=== PATIENT | female | born 1955 | race Caucasian/White ===

== ENCOUNTER 2022-06-17 08:17 | Observation (INO) ==
--- NOTE | 2022-04-29 10:30 | PAT Medication Instructions ---
Medication Instructions Date of Service April 29, 2022 Home Medications Medication Instructions Recorded famotidine 40 mg tablet 40 mg PO QPM #90 tabs 07/03/21 losartan 50 mg tablet 50 mg PO BID #200 tabs 10/23/21 nystatin 100,000 unit/gram topical 1 applic topical BID PRN rash #30 11/17/21 powder grams meloxicam 7.5 mg tablet 7.5 mg PO BID #60 tabs 03/31/22 sodium sul 1.479 gram-potas ch See Rx Instructions PO .COMPLEX 04/19/22 0.188 gram-magnes sul 0.225 gram #24 tabs tablet (Sutab) multivitamin 1 tab PO QAM ascorbic acid (vitamin C) 100 mg tablet 500 mg PO QAM famotidine 40 mg tablet 40 mg PO QPM losartan 50 mg tablet 50 mg PO BID nystatin 100,000 unit/gram topical powder 1 applic topical BID PRN rash meloxicam 7.5 mg tablet 7.5 mg PO BID sodium sul 1.479 gram-potas ch 0.188 gram-magnes sul 0.225 gram tablet (Sutab) See Rx Instructions PO .COMPLEX aspirin 81 mg tablet,delayed release 81 mg PO QAM atorvastatin 20 mg tablet (Lipitor) 20 mg PO QPM calcium carbonate 600 mg-vitamin D3 5 mcg (200 unit) tablet 1 tab PO QAM furosemide 20 mg tablet 20 mg PO QAM potassium gluconate 600 mg (99 mg) tablet 600 mg PO QAM Continue as directed sodium sul 1.479 gram-potas ch 0.188 gram-magnes sul 0.225 gram tablet (Sutab) See Rx Instructions PO .COMPLEX ASK your surgeon for instructions meloxicam 7.5 mg tablet 7.5 mg PO BID STOP taking 24 hours before surgery nystatin 100,000 unit/gram topical powder 1 applic topical BID PRN rash DO NOT take the morning of surgery multivitamin 1 tab PO QAM ascorbic acid (vitamin C) 100 mg tablet 500 mg PO QAM losartan 50 mg tablet 50 mg PO BID calcium carbonate 600 mg-vitamin D3 5 mcg (200 unit) tablet 1 tab PO QAM furosemide 20 mg tablet 20 mg PO QAM potassium gluconate 600 mg (99 mg) tablet 600 mg PO QAM Take morning of surgery With a small sip of water, OTHERWISE NOTHING TO EAT OR DRINK AFTER MIDNIGHT: aspirin 81 mg tablet,delayed release 81 mg PO QAM (continue as normal unless told otherwise by surgeon) Take evening before surgery famotidine 40 mg tablet 40 mg PO QPM losartan 50 mg tablet 50 mg PO BID atorvastatin 20 mg tablet (Lipitor) 20 mg PO QPM Other Notes If you have any questions please call us at [phone] or [phone] or [phone] or [phone]
--- NOTE | 2022-05-08 11:49 | Anesthesiology Consultation ---
Date of Service May 08, 2022 Assessment & Plan (1) Encounter for pre-operative examination: - COVID screening: Per assessment on 05/08: No known COVID-19 positive contacts or current COVID-19 related symptoms. Travel screen negative. Patient vaccinated. At surgeon discretion if preop Covid testing being done. - S/P colonoscopy (04/23/22): MAC at [facility]. No issues noted per post-op anesthesia progress note. - Outpatient joint assessment: Pt currently scheduled for inpatient pathway. If surgeon requests review for outpatient joint pathway, patient is not recommended candidate for outpatient joint program from anesthesia standpoint. Chart Review Chart Review: Acceptable Risk for Surgery and Patient seen in Pre Admission Testing Teaching & Discussion Pre-Anesthesia Teaching/Discussion Notes: Instructed NPO after midnight before surgery,except medications with 15 cc of water. Medication instructions provided according to the PAT guidelines. History Surgery Operation Date: 05/29/22 12:30 Proposed Procedures p Left Total Knee Arthroplasty - Don Chan MD Height/Weight Height: 5 ft 8 in Weight: 135.3 kg Allergies Allergy/AdvReac Type Severity Reaction Status Date / Time JOSELUIS Inhibitors AdvReac Intermediate cough Verified 04/23/22 08:17 lisinopril AdvReac Intermediate Cough Verified 04/23/22 08:17 Medications Home Medications Medication Instructions Recorded Confirmed Last Taken multivitamin 1 tab PO QAM 10/26/18 04/23/22 04/22/22 ascorbic acid (vitamin C) 100 mg 500 mg PO QAM 10/28/18 04/23/22 04/22/22 tablet famotidine 40 mg tablet 40 mg PO QPM #90 tabs 07/03/21 04/23/22 04/22/22 losartan 50 mg tablet 50 mg PO BID #200 tabs 10/23/21 04/23/22 04/23/22 nystatin 100,000 unit/gram topical 1 applic topical BID PRN rash #30 11/17/21 04/20/22 Unknown powder grams meloxicam 7.5 mg tablet 7.5 mg PO BID #60 tabs 03/31/22 04/23/22 04/22/22 aspirin 81 mg tablet,delayed 81 mg PO QAM 04/20/22 04/23/22 04/21/22 release atorvastatin 20 mg tablet (Lipitor) 20 mg PO QPM 04/20/22 04/23/2223 calcium carbonate 600 mg-vitamin 1 tab PO QAM 04/20/22 04/23/22 04/22/22 D3 5 mcg (200 unit) tablet furosemide 20 mg tablet 20 mg PO QAM 04/20/22 04/23/22 04/22/22 potassium gluconate 600 mg (99 mg) 600 mg PO QAM 04/20/22 04/23/22 04/22/22 tablet Past Medical History Medical History Acid reflux disease Allergic rhinitis Bilateral chronic knee pain DVT (deep venous thrombosis) NATACHA (1994) during admission for mediastinal surgery (cyst)- per patient this was prior to the surgery but during the admission felt r/t immobility, no issues since Dyslipidemia Generalized osteoarthritis of multiple sites Hypertension Morbid obesity Osteoarthritis of knee Exercise / Class Metabolic Activity III < 4 Walking/Shop/Light housework Past Family History Family History Mother Diabetes Hypertension Aunt Breast cancer Father Acute myocardial infarction Dementia Myocardial infarction Family/Other Prostate cancer Grandfather No problems noted. Grandfather (Maternal) Stroke Other No family history of adverse response to anesthesia Past Surgical History Surgical History H/O colonoscopy H/O removal of cyst mediastinal cyst removal in 1994 (open mediastinal surgery) History of dilatation and curettage History of hip replacement right Hx of tonsillectomy Past Anesthesia History No Hx of Anesthesia Complications and No Family Hx of Anesthesia Complications History of PONV No Hx of PONV and No Hx of Motion Sickness Social History Smoking Status: Former smoker tobacco type: cigarettes Do You Dip or Chew Tobacco: No Smoking End Date: Quit 2009 Hx Alcohol Use: Yes Alcohol type: beer, wine and hard liquor alcohol intake frequency: holidays/special occasions only Hx Substance Use: No substance use type: does not use Review of Systems Patient denies chest pain, shortness of breath, fever, chills, cough, wheezing, palpitations. Physical Exam Vital Signs VITALS BP 128/75 P 86 TEMP 98.3 SP02 95%RA RESP 16 PHYSICAL Full cervical extension range of motion. Full TMJ range of motion. TMD 2 finger breaths (small chin) Mallampati Score 1 Dentition: several missing sides, + missing caps/crowns, poor dentition Lungs: clear throughout to auscultation Cardiac: regular rate and rhythm, no murmurs noted Spine: normal Carotid arteries: negative bruit Extremities: no edema Lab Results Anesthesia Preop Results Results Anesthesia Widget: WBC 7.60 K/ul (4.8-10.8) 05/08/22 Hgb 14.4 g/dl (12.0-16.0) 05/08/22 Hct 43.5 % (37.0-47.0) 05/08/22 Plt 193 K/uL (130-400) 05/08/22 Na 142 mmol/L (136-145) 05/08/22 K 4.6 mmol/L (3.5-5.1) 05/08/22 Cl 103 mmol/L (98-107) 05/08/22 CO2 34 mmol/L (21-32) H 05/08/22 BUN 18 mg/dl (6-23) 05/08/22 Creat 1.19 mg/dl (0.6-1.2) 05/08/22 Glucose Level 106 mg/dl (70-99(Fasting)) H 05/08/22 PT 10.6 Seconds (9.0-12.0) 05/08/22 PTT 25.3 Seconds (21.0-31.0) 05/08/22 INR 1.0 (0.9-1.1) 05/08/22 Blood Type B Negative 05/08/22 Antibody Screen NEGATIVE 05/08/22 Testing Electrocardiogram Date: 05/08/22 NSR at 76bpm. Chest X-Ray Date: 05/08/22 FINDINGS: No pneumothorax. No pleural effusions. The heart is normal in size. The left lung is clear. Advanced degenerative changes seen within the left shoulder. Volume loss with chronic basilar pleural scarring again noted within the right hemithorax. Right-sided postthoracotomy changes are again noted. No new focal lung consolidations identified. No evidence for pulmonary edema. IMPRESSION: No significant change compared to the prior study. No acute process. Postoperative changes again noted within the right hemithorax. COVID-19 Risk Screen Screening Information COVID-19 Screen Date: 05/08/22 Exposure 21 Days Family/Household +COVID Last 21 Days: No Exposure 10 Days Any COVID Exposure Last 10 Days: No Symptoms Last 10 Days Experienced COVID Sx Last 10 Days: No + COVID 0-90 Days COVID + in Last 0-90 Days: No
--- NOTE | 2022-06-13 19:17 | History and Physical Report ---
DATE OF ADMISSION: 06/17/2022. CHIEF COMPLAINT: Left knee pain. HISTORY OF PRESENT ILLNESS: The patient is a 66-year-old female who presents now for surgical treatm ent of her left knee. She has got a long history of bilateral knee pain and discomfort, left side a bit worse than right. She has been through extensive conservative treatment, which has just become l ess successful over time. She has global pain in her leg. The more she is on it, the more it hurts and she limps more as the day goes on. She does have a history of DVT back in 1994 with some type of breast surgery. No known clotting disorder. She is on no blood thinners. She did have a right hip replacement done by Dr. Barajas in 2013. Of note, the patient was previously scheduled for surgery and had to cancel due to COVID positive peri t. She has now recovered from this and would like to proceed. The test was 05/27/2022. PAST MEDICAL HISTORY: 1. Arthritis. 2. History of DVT without PE. 3. Elevated cholesterol. 4. Hypertension. PAST SURGICAL HISTORY: Includes: 1. Right total hip replacement done on 12/13/[address] Barajas. 2. Mediastinal cyst surgery complicated by a blood clot in 1994. 3. Tonsillectomy. 4. Lip repair. ALLERGIES: PENICILLIN AND JOSELUIS INHIBITORS. CURRENT MEDICATIONS: Include: 1. Potassium. 2. Nitrostat. 3. Multivitamin. 4. Calcium. 5. Lipitor. 6. Aspirin. 7. Vitamin C. 8. Famotidine. 9. Furosemide. 10. Losartan. SOCIAL HISTORY: A 66-year-old female who lives in [place]. She has a boyfriend and a sister wh o live at home with her. Rare alcohol intake. Does not smoke. FAMILY HISTORY: Significant for heart disease, diabetes, blood clots. REVIEW OF SYSTEMS: Significant for diabetes. Had this one DVT without a PE years ago. No known chata tting disorder. No chest pain, shortness of breath. PHYSICAL EXAMINATION: GENERAL: Shows a pleasant middle-aged female. Looks to be in pretty good health. HEENT: Benign. NECK: Supple, with no lymphadenopathy. LUNGS: Clear to auscultation. HEART: Has a regular rate and rhythm. ABDOMEN: Soft, nontender, nondistended. EXTREMITIES: Grossly neurovascularly intact except as follows: Examination of the left knee reveals the patient walks with a little bit of waddling gait. Got a large soft tissue envelope. Got diffus e bony hypertrophy. Fairly stiff knee with about a 10-degree flexion contracture, only bends to abou t 90 degrees. No instability. No pain with hip motion. X-RAYS: Left knee reveal advanced left knee tricompartment DJD. She has got tibial femoral subluxat ion. She has complete loss of her medial and lateral joint space. Osteophytes in all 3 compartments . ASSESSMENT: A 66-year-old female with multiple medical comorbidities with left knee degenerative kimberly nt disease. She has failed conservative treatment. She was actually scheduled for surgery in the [place], but canceled due to COVID and now would like to proceed. She has recovered. PLAN: We will proceed with left knee replacement. The risks and benefits of this procedure were exp lained to the patient and include but not limited to DVT, PE, , infection, neurological injury, vascular injury, bleeding problem, pain, limited range of motion, stiffness, failure to relieve her s ymptoms, incomplete relief of symptoms, etc. The patient understands and desires to proceed. Inform ed consent was obtained. The patient does have this one DVT long time ago without other problems. No known clotting disorder. We will use aspirin for DVT prophylaxis along with TEDs and SCDs. She is planning to be discharged to home with home health. Her boyfriend and sister will be able to assist and care. Job ID: [id number]
[~2022-06-17 08:17] MED LIST: ACETAMINOPHEN 500 MG TAB PO SCH; BUPIVACAINE 0.5 % 5 MG/1 ML PF 10ML VIAL ONE; BUPIVACAINE LIPOSOME/PF 266 MG, BUPIVACAINE/EPINEPHRINE 50 ML, SODIUM CHLORIDE 0.9% PF ... INFIL SCH; CeleBREX 200 MG CAP PO SCH; FAMOTIDINE 20 MG TAB PO SCH; LR 500ML BOLUS, THEN 15ML/HR IV SCH; LR 60ML/HR IV SCH; METOCLOPRAMIDE HCL 10 MG TABLET PO SCH; ROPIVACAINE 0.5% 5 MG/ML 30 ML VIAL ONE; Scopolamine 1 MG TDSY TD SCH; Scopolamine CHECK PATCH PLACEMENT SCH; TRANEXAMIC ACID 1,000 MG **IV Intra-op IV SCH; ceFAZolin 2000MG 2,000 MG/15 ML SYR IV SCH
--- NOTE | 2022-06-17 08:54 | History & Physical Bridge Note ---
Date of Service June 17, 2022 History & Physical Bridge Note I have examined the patient, reviewed the History & Physical and in the interval since the performance of the History & Physical I have noted the following changes of clinical significance: no changes noted
[2022-06-17] MEDS ORDERED: MIDAZOLAM HCL 1 MG/ML 2ML VIAL ONE (09:33)
[2022-06-17] MEDS ORDERED: LIDOCAINE 2% MPF LOCAL 5 ML VIAL ONE (09:33)
[2022-06-17] MEDS ORDERED: PROPOFOL IV EMULSION 10 MG/ML 20 ML VIAL IV ONE ×3 (09:33→12:30)
[2022-06-17] MEDS ORDERED: ONDANSETRON INJ 2 MG/ML 2 ML VIAL ONE (09:33)
[2022-06-17] MEDS ORDERED: ATROPINE SULFATE 0.1 MG/ML 10ML SYR IV PRN (10:22)
[2022-06-17] MEDS ORDERED: HYDROmorphone INJ 1 MG/ML SYRINGE IV PRN (10:22)
[2022-06-17] MEDS ORDERED: KETOROLAC TROMETHAMINE 15 MG/ML VIAL IV PRN (10:22)
[2022-06-17] MEDS ORDERED: ePHEDrine sulfate 50 MG/ML AMP IV PRN (10:22)
[2022-06-17] MEDS ORDERED: ONDANSETRON INJ 2 MG/ML 2 ML VIAL IV PRN ×2 (10:22→13:58)
[2022-06-17] MEDS ORDERED: BUPIVACAINE/EPINEPHRINE 0.25% 1:200,000 30 ML VIAL ONE (10:40)
[2022-06-17] MEDS ORDERED: BUPIVACAINE LIPOSOME 1.3% 266 MG/20 ML VIAL ONE (10:54)
[2022-06-17] MEDS ORDERED: GLYCOPYRROLATE 0.2 MG/ML VIAL ONE (11:23)
--- NOTE | 2022-06-17 12:55 | Operative Report ---
PG Post Operative Report Pre & Post Diagnosis Operation Date: 06/17/22 10:40 Pre-Op Diagnosis: Left knee degenerative joint disease. Post-Op Diagnosis: Left knee degenerative joint disease. I identified the patient and participated in the time-out.: Yes Procedure Operation Date: 06/17/22 10:40 Actual Procedures p Left Total Knee Arthroplasty(Left) - Don Chan MD Surgeon Don Chan MD Regrinder Operator Naveen Cruz PA-C Estimated Blood Loss 50 Findings Consistent with Post-Op Diagnosis Operative findings revealed a large soft tissue envelope. She had extensive grade 4 [id number] disease in all 3 compartments with significant osteophytes in all 3 compartments. A very stiff knee preoperatively with a 10 to 15 degree flexion contracture and flexion to only 90 degrees. Specimens Left knee sent for pathology Anesthesia Type Spinal MAC Complications none Indications Patient is a 66-year-old female said a long history of bilateral knee pain discomfort left side bit worse than the right. She been to extensive conservative treatment over the years which would become less successful. She was really limited by her severe pain in her knees. She failed all conservative measures. She elected proceed with left total knee arthroplasty. Description of Procedure Operative implants consist of: 1 Biomet Vanguard size 72.5 left posterior stabilized femoral component. 2. Biomet size 71 tibial tray. 3. 12 mm posterior stabilized polyethylene plus insert. 4. 31 x 8 all poly patella. The patient was taken the operating, identified, placed on the operating table supine position protectors were properly padded. IV antibiotics tried by anesthesia team. A spinal anesthetic and abductor canal block had provided holding area. Jacome catheter was placed in sterile fashion. Left factor was then placed in the left lower extremities then prepped and draped in usual sterile fashion. The left leg was elevated exsanguinated with use of an Esmarch and the tourniquet was placed at 300 mmHg. An anterior posterior left knee was then performed through a longitudinal incision centered over the patella. Sharp dissection scalp through subcutaneous tissues down the extensor mechanism. Medial parapatellar arthrotomy incision was made. Some subperiosteal dissection was carried out medially. The fat pad was dissected from Neath patella tendon. Lateral patellofemoral ligament was released. Patella subluxated laterally and the knee was flexed. The osteophytes taken off distal femur. The ACL and PCL released from distal femur the tibia subluxated anteriorly. The external tibial alignment jig was then placed in the interface the tibia and adjusted 14 mm medially. Proximal tibial cut was made to move about a millimeter at most bone from the medial side. Some osteophytes taken off medial and posterior medially. Tibia sized to a size 71. Attention drawn the femur. The distal femur examined the sharp drill. The intramedullary canal was suction. A left 5 degree valgus cutting guide was placed. Distal femoral cutting block was pinned in place. Distal femoral cut was made to take an additional 3 mm of bone off distal femur. The femur was then sized to a size 72.5. The AP cutting block was pinned parallel to the epicondylar axis which was 3 degrees of external rotation. The anterior cut, anterior chamfer, posterior cut, posterior chamfer cuts were made. The box cutting guide was placed in just slight lateral and the box cut was made. The knee was flexed. The remnants of the medial and lateral menisci were excised. The osteophytes taken off the posterior aspect of femur. Trial femoral component was placed. Tibial tray was pinned in maximum external rotation and the drill and stem punch were used to create the defect in proximal tibia for the tibial tray. The knee was then trialed and the 12 mm insert fit most appropriately. It was a little bit loose in flexion so we elected to use a PS plus insert. Attention drawn the patella. His patella was cleaned of all soft tissues. Patella thickness measured 22 mm in thickness was cut down to 14. Was sized to a size 31 patella. The lug holes were drilled for 31 patella. The lateral osteophytes removed. Patella button was placed. Knee was taken through range of motion patella tracked nicely with no thumbs test. Attention drawn to place the permanent components. Nupathe all trial components were removed. Bone plug was placed in the distal femur limit blood loss. Double batch Palacos G cement was mixed. Biomet Vanguard size 72.5 left posterior stabilized femoral component, size 71 tibial tray, 12 mm posterior stabilized polyethylene insert, and a 31 x 8 all poly patella then cemented in place. Knee was brought into full extension till cement hardened. Final cement check was then performed. Pericapsular tissues were injected with a total of 100 cc of combination of 20 cc of Exparel, 30 cc normal saline, 50 cc of quarter percent Marcaine with epinephrine. Patient did receive 1 g of tranexamic acid. The tourniquet was let down for final tourniquet time of 69 minutes. Hemostasis assured use electrocautery. Extensor mechanism closed with combination 1 PDS suture #1 Vicryl suture in a dyokjn-ck-ekejx fashion. Extensor mechanism checked found to be intact with subcutaneous tissue then closed with 2 Dexon suture in buried fashion skin was closed skin heydi. Leg was then cleaned and dried and sterile dressed with Xeroform, 4 fours, sterile cast padding, Oren bandage were applied. Patient then transferred to the recovery room in stable condition. Patient tolerated procedure well no complications. Naveen Cruz, my physician bilingual sales assistant, was present for the entire procedure. His assistance was essential and required for appropriate patient positioning, prepping and draping, surgical exposure, performing the technical details of the operation, placement the implants, closure of the wound, and placement of the sterile bandage. I attest to the content of the Intraoperative Record and any orders documented therein. Any exceptions are noted below.
--- NOTE | 2022-06-17 13:29 | Anesthesiology Progress Note ---
Date of Service June 17, 2022 Anesthesia Post Procedure Vital Signs Vital Signs: Temp Pulse Pulse Resp BP BP Pulse Ox 06/17/22 13:25 69 23 140/84 93 06/17/22 13:15 77 17 134/74 94 06/17/22 13:05 79 22 131/68 94 06/17/22 12:57 97.2 F L 81 21 113/76 95 06/17/22 08:46 97.7 F 83 20 151/81 H 95 O2 Del Method 06/17/22 13:25 Room Air 06/17/22 13:15 Room Air 06/17/22 13:05 Room Air 06/17/22 12:57 Room Air 06/17/22 08:46 Room Air Transfer of Care Handoff Completed per policy Notes Mental Status: alert / awake / arousable and participated in evaluation Patient Amnestic to Procedure: Yes Nausea / Vomiting: adequately controlled Pain: adequately controlled Airway Patency, RR, SpO2: stable & adequate BP & HR: stable & adequate Hydration State: stable & adequate Neuraxial Anesthesia: was administered and sensory block is resolving Anesthetic Complications: no major complications apparent and Pt Satisfied with anesthetic care
[2022-06-17] MEDS ORDERED: MAGNESIUM HYDROXIDE SUSP 30 ML UDC PO PRN (13:58)
[2022-06-17] MEDS ORDERED: NALOXONE HCL 0.4 MG/1 ML VIAL/CARP IV PRN (13:58)
[2022-06-17] MEDS ORDERED: ALUMINUM/MAGNESIUM SUSP 30 ML UDC PO PRN (13:58)
[2022-06-17] MEDS ORDERED: HYDROmorphone INJ 0.5 MG/0.5 ML SYR IV PRN (13:58)
[2022-06-17] MEDS ORDERED: METOCLOPRAMIDE HCL INJ 5 MG/ML 2 ML VIAL IV PRN (13:58)
[2022-06-17] MEDS ORDERED: NYSTATIN POWDER 15GM BTL EXT PRN (13:58)
[2022-06-17] MEDS ORDERED: bisacodyL 10 MG SUPP PR PRN (13:58)
[2022-06-17] MEDS ORDERED: SODIUM CHLORIDE 0.9% 1000ML 1,000 ML IV SCH (13:58)
--- NOTE | 2022-06-17 14:18 | XRay Report ---
TWO VIEWS LEFT KNEE CLINICAL HISTORY: Postoperative examination. FINDINGS: AP and crosstable lateral portable views of the left knee are obtained. A left knee arthrop lasty is in near anatomic alignment. There has been undersurface remodeling of the patella. No acute fracture is seen. There are expected postoperative changes around the knee including skin clips, soft tissue edema, and subcutaneous gas. IMPRESSION: Expected postoperative changes status post left knee arthroplasty. No acute fracture is s een. ACT 112: Negative or not required by law. Electronically signed by: Carlos Bauer M.D. 06/17/2022 2:17 PM
[2022-06-17] MEDS: KETOROLAC TROMETHAMINE 15 MG/ML VIAL IV SCH ×2 (14:45→20:13)
[2022-06-17] MEDS: ACETAMINOPHEN 500 MG TAB PO SCH ×2 (14:45→21:11)
[2022-06-17] MEDS: Scopolamine CHECK PATCH PLACEMENT SCH ×2 (15:51→23:24)
[2022-06-17] MEDS: ASCORBIC ACID 500 MG TAB PO SCH (16:53)
[2022-06-17] MEDS: ceFAZolin 2000MG 2,000 MG/15 ML SYR IV SCH (18:27)
[2022-06-17] MEDS ORDERED: TRANEXAMIC ACID / 0.7% NACL 1,000 MG/100 ML BAG IV SCH (19:00)
[2022-06-17] MEDS: oxyCODONE HCL IR 5 MG TAB (IMMEDIATE RELEASE) PO PRN (20:13)
[2022-06-17] MEDS: ASPIRIN 81 MG ECTAB PO SCH (20:13)
[2022-06-17] MEDS: LOSARTAN POTASSIUM 50 MG TAB PO SCH (20:13)
[2022-06-17] MEDS: DOCUSATE SODIUM 100 MG CAP PO SCH (20:13)
[2022-06-17] MEDS ORDERED: ATORVASTATIN 20 MG TAB PO SCH (21:00)
[2022-06-17] MEDS ORDERED: SENNA 8.6 MG TAB PO SCH (21:00)
[2022-06-17] MEDS ORDERED: NON-FORMULARY MEDICATION (Amino Acids [Amino Acid] Capsule) PO SCH (21:00)
[2022-06-17] MEDS ORDERED: FAMOTIDINE 40 MG TABLET PO SCH (21:00)
[2022-06-18] MEDS: ceFAZolin 2000MG 2,000 MG/15 ML SYR IV SCH (02:29)
[2022-06-18] MEDS: KETOROLAC TROMETHAMINE 15 MG/ML VIAL IV SCH ×2 (02:29→07:54)
[2022-06-18] MEDS: oxyCODONE HCL IR 5 MG TAB (IMMEDIATE RELEASE) PO PRN (05:21)
[2022-06-18] MEDS: ACETAMINOPHEN 500 MG TAB PO SCH (05:22)
[2022-06-18] MEDS: ASCORBIC ACID 500 MG TAB PO SCH (07:54)
[2022-06-18] MEDS: LOSARTAN POTASSIUM 50 MG TAB PO SCH (07:55)
[2022-06-18] MEDS: Scopolamine CHECK PATCH PLACEMENT SCH (07:55)
[2022-06-18] MEDS: ASPIRIN 81 MG ECTAB PO SCH (07:55)
[2022-06-18] MEDS: DOCUSATE SODIUM 100 MG CAP PO SCH (07:55)
[2022-06-18 07:59] LABS: Hematocrit (blood only) 33.9 % (37.0-47.0); Hemoglobin 11.3 g/dl (12.0-16.0); Mean Corpuscular Hemoglobin 30.9 pg (25.0-34.0); Mean Corpuscular Hgb Conc 33.3 g/dL (32.0-36.0); Mean Corpuscular Volume 92.6 fL (80.0-100.0); Mean Platelet Volume 10.9 fL (9.4-12.4); Platelet Count 161 K/uL (130-400); RDW Coefficient of Variation 12.1 % (11.5-14.5); RDW Standard Deviation 40.8 fL (36.4-46.3); Red Blood Count 3.66 M/uL (4.20-5.40); White Blood Count 12.24 K/ul (4.8-10.8)
[2022-06-18 08:07] LABS: BUN Creatinine Ratio 18.8 (10-20); Calcium 8.3 mg/dl (8.6-10.3); Creatinine Clr Calc Pharmacy 62.5 ml/min; Est GFR (African American) 50.1 ml/min; Est GFR (Non-African American) 43.2 ml/min; Potassium 4.6 mmol/L (3.5-5.1)
[2022-06-18] MEDS ORDERED: MULTIVITAMIN TAB PO SCH (09:00)
[2022-06-18] MEDS ORDERED: DOCUSATE SODIUM/SENNA 50/8.6MG TAB PO SCH (09:00)
[2022-06-18] MEDS ORDERED: FUROSEMIDE 20 MG TAB PO SCH (09:00)
[2022-06-18] MEDS ORDERED: NON-FORMULARY MEDICATION (Multivitamin tablet) PO SCH (09:00)
[2022-06-18] MEDS ORDERED: CALCIUM 600MG + VIT D 400 IU TAB PO SCH (09:00)
[2022-06-18] MEDS ORDERED: NON-FORMULARY MEDICATION (Ascorbic Acid (Vitamin C) 100 mg tablet) PO SCH (09:00)
--- NOTE | 2022-06-18 11:14 | Progress Notes ---
DATE OF SERVICE: 06/18/2022. SUBJECTIVE: A 66-year-old female postoperative day 1 from a left knee replacement. She is doing pre tty well. Had a pretty good night. Pain has been controlled. No chest pain or shortness of breath. Not feeling dizzy or lightheaded. OBJECTIVE: VITAL SIGNS: Temperature 36.6. Vital signs are stable. GENERAL: Shows a pleasant middle-aged female. She is sitting up in her bed, looks quite comfortable . LUNGS: Clear to auscultation. HEART: Regular rate and rhythm. ABDOMEN: Soft, nontender, nondistended. EXTREMITIES: Grossly neurovascularly intact except as follows. Examination of the left leg reveals the dressing to be clean, dry and intact. She can dorsiflex and plantarflex her foot appropriately. Cannot quite do a straight leg raise. Toes are pink with brisk refill. Good distal pulse. LABORATORY DATA: Hemoglobin 11.3. Hematocrit 33.9. Electrolytes are stable. ASSESSMENT: A 66-year-old female postoperative day 1 from a left knee replacement, doing pretty well . Pain is controlled. She is neurologically intact. PLAN: 1. DVT prophylaxis includes thigh-high TEDs, SCDs, and aspirin twice a day. 2. PT/OT, weight bear as tolerated. 3. Pain control, doing okay with current pain regimen. 4. Disposition: Plan to discharge to home with some home health if she does okay in therapy today. Job ID: [id number]
--- NOTE | 2022-06-20 20:10 | Discharge Summary ---
Date of Service June 20, 2022 Discharge Data Procedures Performed Operation Date: 06/17/22 10:40 Actual Procedures p Left Total Knee Arthroplasty(Left) - Don Chan MD Hospital Course (1) Status post total left knee replacement: This is a 66 year old patient admitted on 06/17/22 and underwent total knee arthroplasty. She tolerated the procedure well and there were no complications. Transferred to the PACU post op and later to the orthopedic floor for further care. She was given ancef for antibiotic prophylaxis. She was also given TERI stockings, SCDs, and aspirin for DVT prophylaxis. Hemoglobin, hematocrit, and vital signs were monitored during her hospital stay and remained stable. Did not require any blood transfusions. There were no complications during her hospital stay. By post op day #1 the patient was tolerating a regular diet, pain was reasonably controlled with oral pain medicine, and she was participating in physical therapy. On post op day #1 the patient was discharged home and set up with home health care. She was given printed discharge instructions including prescriptions for extra strength tylenol, aspirin, cefadroxil, ketorolac, zofran, senokot, and oxycodone. Continue physical therapy, weight bearing as tolerated. Continue TERI stockings. Follow up approximately 2 weeks post op or sooner if there are problems or concerns. Coding Level of Care Code None Diagnoses Status post total left knee replacement Z96.652
== END 2022-06-18 12:46 | disposition home health service (06) ==
LOC: 3E 08:17 → ASU 08:17

== ENCOUNTER 2023-07-20 10:53 | Observation (INO) ==
--- NOTE | 2023-06-25 11:18 | PAT Medication Instructions ---
Medication Instructions Date of Service June 25, 2023 Home Medications Medication Instructions Recorded famotidine 40 mg tablet 40 mg PO QPM #90 tabs 07/24/22 atorvastatin 20 mg tablet (Lipitor) 20 mg PO QPM #90 tabs 01/01/23 losartan 50 mg tablet 50 mg PO BID #200 tabs 01/01/23 nystatin 100,000 unit/gram topical 1 applic topical BID PRN rash #30 04/06/23 powder grams furosemide 20 mg tablet 20 mg PO QAM #90 tabs 04/13/23 meloxicam 7.5 mg tablet 7.5 mg PO BID #200 tabs 04/13/23 multivitamin 1 tab PO QAM ascorbic acid (vitamin C) 100 mg tablet 500 mg PO QAM calcium carbonate 600 mg-vitamin D3 5 mcg (200 unit) tablet 1 tab PO QAM potassium gluconate 600 mg (99 mg) tablet 600 mg PO QAM famotidine 40 mg tablet 40 mg PO QPM aspirin 81 mg tablet,delayed release (Karlos Low Dose Aspirin) 81 mg PO QAM atorvastatin 20 mg tablet (Lipitor) 20 mg PO QPM losartan 50 mg tablet 50 mg PO BID nystatin 100,000 unit/gram topical powder 1 applic topical BID PRN rash furosemide 20 mg tablet 20 mg PO QAM meloxicam 7.5 mg tablet 7.5 mg PO BID amlodipine 5 mg tablet 5 mg PO QAM ASK your surgeon for instructions meloxicam 7.5 mg tablet 7.5 mg PO BID ASK your prescriber and surgeon aspirin 81 mg tablet,delayed release (Karlos Low Dose Aspirin) 81 mg PO QAM STOP taking 24 hours before surgery nystatin 100,000 unit/gram topical powder 1 applic topical BID PRN rash DO NOT take the morning of surgery multivitamin 1 tab PO QAM ascorbic acid (vitamin C) 100 mg tablet 500 mg PO QAM calcium carbonate 600 mg-vitamin D3 5 mcg (200 unit) tablet 1 tab PO QAM potassium gluconate 600 mg (99 mg) tablet 600 mg PO QAM losartan 50 mg tablet 50 mg PO BID furosemide 20 mg tablet 20 mg PO QAM Take morning of surgery With a small sip of water, OTHERWISE NOTHING TO EAT OR DRINK AFTER MIDNIGHT: amlodipine 5 mg tablet 5 mg PO QAM Take evening before surgery famotidine 40 mg tablet 40 mg PO QPM atorvastatin 20 mg tablet (Lipitor) 20 mg PO QPM losartan 50 mg tablet 50 mg PO BID Other Notes If you have any questions please call us at [phone] or [phone] or [phone] or [phone]
--- NOTE | 2023-06-29 10:39 | Anesthesiology Consultation ---
Date of Service June 29, 2023 Assessment & Plan (1) Encounter for pre-operative examination: Chart Review Chart Review: Acceptable Risk for Surgery and Patient seen in Pre Admission Testing - Patient is NOT an ideal OPJ candidate (currently 23 hour obs) Per PAT appt on 06/29/23, no recent illness/disease exposures, illness related symptoms, or recent illness/disease positive tests. Will leave to surgeon's discretion if preop Covid testing needed Teaching & Discussion Pre-Anesthesia Teaching/Discussion Notes: Instructed NPO after midnight before surgery,except medications with 15 cc of water. Medication instructions provided according to the [facility] guidelines. History Surgery Operation Date: 07/20/23 08:50 Proposed Procedures p Right Total Knee Arthroplasty - Don Chan MD Height/Weight Height: 5 ft 8 in Weight: 142.2 kg Allergies Allergy/AdvReac Type Severity Reaction Status Date / Time JOSELUIS Inhibitors AdvReac Intermediate cough Verified 06/23/23 07:43 lisinopril AdvReac Intermediate Cough Verified 06/23/23 07:43 Medications Home Medications Medication Instructions Recorded Confirmed Last Taken multivitamin 1 tab PO QAM 10/26/18 06/23/23 06/16/22 08:00 ascorbic acid (vitamin C) 100 mg 500 mg PO QAM 10/28/18 06/23/23 06/16/22 08:00 tablet calcium carbonate 600 mg-vitamin 1 tab PO QAM 04/20/22 06/23/23 06/16/22 08:00 D3 5 mcg (200 unit) tablet potassium gluconate 600 mg (99 mg) 600 mg PO QAM 04/20/22 06/23/23 06/16/22 08:00 tablet famotidine 40 mg tablet 40 mg PO QPM #90 tabs 07/24/22 06/23/23 Unknown aspirin 81 mg tablet,delayed 81 mg PO QAM 08/31/22 06/23/23 Unknown release (Karlos Low Dose Aspirin) atorvastatin 20 mg tablet (Lipitor) 20 mg PO QPM #90 tabs 01/01/23 06/23/23 Unknown losartan 50 mg tablet 50 mg PO BID #200 tabs 01/01/23 06/23/23 Unknown nystatin 100,000 unit/gram topical 1 applic topical BID PRN rash #30 04/06/23 06/23/23 Unknown powder grams furosemide 20 mg tablet 20 mg PO QAM #90 tabs 04/13/23 06/23/23 Unknown meloxicam 7.5 mg tablet 7.5 mg PO BID #200 tabs 04/13/23 06/23/23 Unknown amlodipine 5 mg tablet 5 mg PO QAM 06/23/23 06/23/23 Unknown Past Medical History Medical History Acid reflux disease well controlled and stable Allergic rhinitis Chronic post nasal drip - stable at this time DVT (deep venous thrombosis) - NATACHA (1994) during admission for mediastinal surgery (cyst)- per patient this was prior to the surgery but during the admission felt r/t immobility, no issues since - On Warfarin - x six weeks - No issues since - Has had subsequent surgeries without issues; no known clotting disorder Dyslipidemia Generalized osteoarthritis of multiple sites History of COVID-19 05/27/22- fatigue, fever, congestion, cough, no hospitalization, no current issues Hypertension Morbid obesity Right rotator cuff tendinitis injection at [place] [facility] 06/21/23>"feeling better" (injection given by Dr. Chan) Sensorineural hearing loss of both ears Mild- no hearing aids needed Symmetrical HF SNHL Exercise / Class Metabolic Activity III < 4 Walking/Shop/Light housework (one flight of stairs - no chest pain, mild SOB ) Past Family History Family History Mother Diabetes Hypertension Aunt Breast cancer Father Acute myocardial infarction Dementia Myocardial infarction Family/Other Prostate cancer Grandfather No problems noted. Grandfather (Maternal) Stroke Other No family history of adverse response to anesthesia Past Surgical History Surgical History H/O colonoscopy 03/2022, Repeat 5yrs H/O removal of cyst mediastinal cyst removal in 1994 (open mediastinal surgery) History of dilatation and curettage History of hip replacement (~2013) right Hx of tonsillectomy Status post total left knee replacement (~2022) Past Anesthesia History No Hx of Anesthesia Complications and No Family Hx of Anesthesia Complications History of PONV No Hx of PONV and No Hx of Motion Sickness Social History Smoking Status: Former smoker tobacco type: cigarettes Do You Dip or Chew Tobacco: No Smoking End Date: 2009 Hx Alcohol Use: Yes Alcohol type: beer, wine and hard liquor alcohol intake frequency: holidays/special occasions only substance use type: does not use Review of Systems - Chronic SANDERS since mediastinal surgery - stable and mild - Hx of snoring- no hx of sleep study Patient denies chest pain, shortness of breath, cough, wheezing, palpitations. No hx of seizures, stroke, CT. No hx of blood transfusions Physical Exam Vital Signs VITALS BP 134/79 P 82 TEMP 97.8 SP02 94% RESP 16 Constitutional no acute distress ENMT Mouth: no TMJ clicking Thyromental Distance: < 3.5 Finger Breadths (3.0) Mallampati Class: III Missing most of side teeth and molars missing Caps and crowns in the past (only to side teeth and molars) Neck + limited neck extension (mild) Respiratory normal respiratory effort; no respiratory distress Auscultation: lungs clear to auscultation bilaterally; no wheezes Cardiovascular Rate/Rhythm: regular rate and regular rhythm Heart Sounds: no murmur Vessels: no carotid bruit Musculoskeletal Spine: + pain with cervical ROM (mild) Extremities: extremities normal to inspection Psychiatric Orientation: alert Lab Results Anesthesia Preop Results Results Anesthesia Widget: WBC 8.08 K/ul (4.8-10.8) 06/29/23 Hgb 14.3 g/dl (12.0-16.0) 06/29/23 Hct 43.1 % (37.0-47.0) 06/29/23 Plt 174 K/uL (130-400) 06/29/23 Na 141 mmol/L (136-145) 06/29/23 K 4.2 mmol/L (3.5-5.1) 06/29/23 Cl 103 mmol/L (98-107) 06/29/23 CO2 32 mmol/L (21-32) 06/29/23 BUN 24 mg/dl (6-23) H 06/29/23 Creat 1.08 mg/dl (0.6-1.2) 06/29/23 Glucose Level 106 mg/dl (70-99(Fasting)) H 06/29/23 PT 10.3 Seconds (9.0-12.0) 06/29/23 PTT 26 Seconds (21-31) 06/29/23 INR 0.9 (0.9-1.1) 06/29/23 Blood Type B Negative 06/29/23 Antibody Screen NEGATIVE 06/29/23 Testing Electrocardiogram Date: 06/29/23 Findings: + NSR @ (81bpm) Normal EKG per cardio Chest X-Ray Date: 06/29/23 FINDINGS: Moderate elevation of the right hemidiaphragm is unchanged. Blunting of the right costophrenic angle is chronic. There is no consolidation or evidence for pulmonary edema. Cardiomediastinal silhouette is stable. The appearance of the chest is unchanged. IMPRESSION: No acute cardiopulmonary findings. No change in appearance of the chest.
[~2023-07-20 10:53] MED LIST changes: -ACETAMINOPHEN 500 MG TAB PO SCH; -BUPIVACAINE LIPOSOME/PF 266 MG, BUPIVACAINE/EPINEPHRINE 50 ML, SODIUM CHLORIDE 0.9% PF ... INFIL SCH; -CeleBREX 200 MG CAP PO SCH; -FAMOTIDINE 20 MG TAB PO SCH; -LR 500ML BOLUS, THEN 15ML/HR IV SCH; -LR 60ML/HR IV SCH; -METOCLOPRAMIDE HCL 10 MG TABLET PO SCH; -Scopolamine 1 MG TDSY TD SCH; -Scopolamine CHECK PATCH PLACEMENT SCH; -TRANEXAMIC ACID 1,000 MG **IV Intra-op IV SCH; -ceFAZolin 2000MG 2,000 MG/15 ML SYR IV SCH
[2023-07-20] MEDS ORDERED: MIDAZOLAM HCL 1 MG/ML 2ML VIAL ONE ×2 (10:57→12:15)
[2023-07-20] MEDS: FAMOTIDINE 20 MG TAB PO SCH (11:36)
[2023-07-20] MEDS: METOCLOPRAMIDE HCL 10 MG TABLET PO SCH (11:36)
[2023-07-20] MEDS: CeleBREX 200 MG CAP PO SCH (11:36)
[2023-07-20] MEDS: ACETAMINOPHEN 500 MG TAB PO SCH ×2 (11:36→20:28)
[2023-07-20] MEDS: Scopolamine 1 MG TDSY TD SCH (11:40)
[2023-07-20] MEDS: dexAMETHasone**PF** 10 MG/ML VIAL IV SCH (11:41)
[2023-07-20] MEDS: LR 60ML/HR IV SCH (11:48)
[2023-07-20] MEDS: LR 500ML BOLUS, THEN 15ML/HR IV SCH (11:50)
[2023-07-20] MEDS ORDERED: ATROPINE SULFATE 0.1 MG/ML 10ML SYR IV PRN (12:10)
[2023-07-20] MEDS ORDERED: ePHEDrine sulfate 50 MG/ML AMP IV PRN (12:10)
[2023-07-20] MEDS ORDERED: ONDANSETRON INJ 2 MG/ML 2 ML VIAL IV PRN ×2 (12:10→15:28)
[2023-07-20] MEDS ORDERED: fentaNYL citrate PF 100 MCG/2 ML VIAL IV PRN (12:10)
--- NOTE | 2023-07-20 12:14 | History & Physical Bridge Note ---
Date of Service July 20, 2023 History & Physical Bridge Note I have examined the patient, reviewed the History & Physical and in the interval since the performance of the History & Physical I have noted the following changes of clinical significance: no changes noted
[2023-07-20] MEDS ORDERED: fentaNYL citrate PF 100 MCG/2 ML VIAL ONE (12:15)
[2023-07-20] MEDS: ceFAZolin 3000MG 3,000 MG/72.5 ML BAG IV SCH (12:39)
[2023-07-20] MEDS ORDERED: PROPOFOL IV EMULSION 10 MG/ML 20 ML VIAL IV ONE ×2 (12:42→13:03)
[2023-07-20] MEDS ORDERED: PHENYLEPHRINE 100MCG/ML 10ML SYR IV ONE (13:04)
[2023-07-20] MEDS: ROPIV 0.5% 246mg, Ketorolac 30mg, EPINEPHrine 0.5mg in NSS INFIL SCH (13:06)
[2023-07-20] MEDS: ORTHO JOINT ANESTHETIC ONE (13:08)
[2023-07-20] MEDS: TRANEXAMIC ACID 1,000 MG **IV Intra-op IV SCH (13:33)
[2023-07-20] MEDS ORDERED: ONDANSETRON INJ 2 MG/ML 2 ML VIAL ONE (13:41)
--- NOTE | 2023-07-20 14:29 | Operative Report ---
PG Post Operative Report Pre & Post Diagnosis Operation Date: 07/20/23 12:30 Pre-Op Diagnosis: Right Knee Advanced Degenerative Joint Disease Post-Op Diagnosis: Right Knee Advanced Degenerative Joint Disease I identified the patient and participated in the time-out.: Yes Procedure Operation Date: 07/20/23 12:30 Actual Procedures p Right Total Knee Arthroplasty(Right) - Don Chan MD Surgeon Don Chan MD Cold Reduction Roller Naveen Cruz PA-C Estimated Blood Loss 50 Findings Consistent with Post-Op Diagnosis Operative findings revealed a very large soft tissue envelope. She had extensive grade 4 [id number] disease in all 3 compartments with osteophytes in all 3 compartments. Very stiff knee preoperatively with out of 10 degree flexion contracture and only about 90 degrees of flexion. Specimens Right knee sent for pathology. Anesthesia Type Spinal MAC Complications none Disposition Accompanied Patient To Recovery: No Indications Patient is a 67-year-old female said a long history of bilateral knee pain discomfort scribes gotten worse over time. She is. She has been through extensive conservative treatment in the left successful over time. She did have her left knee replaced just about a year ago and is done well from this. She now presents for surgical treatment of her right knee. Description of Procedure Operative implants consist of: 1 Biomet Vanguard size 72.5 right posterior stabilized femoral component. 2. Biomet size 71 tibial tray. 3. 12 mm posterior stabilized polyethylene insert. 4. 31 x 8 all poly patella. The patient was taken the operating, identified, placed on the operating table in the supine position but all contact. Were appropriately padded. IV antibiotics tried by anesthesia team. Spinal anesthetic and to implement in the holding area along with a adductor canal block. A Jacome catheter was placed. A right citrate was then placed in the right lower extremities then prepped and draped in usual sterile fashion. The right leg was elevated exsanguinated with use of an Esmarch interspaces 350 mmHg. An anterior approach to the right knee was then performed to longitudinal incision centered over the patella. Sharp dissection was Through subcutaneous tissue down the extensor mechanism. A medial parapatellar arthrotomy incision was made. Some subperiosteal dissection was carried out medially. The fat pad was resected from the patella tendon. The lateral patellofemoral ligament was released. Patella subluxated laterally knee was flexed. The osteophytes taken distal femur. The ACL and PCL were then released from the distal femur and the tibia subluxated anteriorly. The external obtainment LYMErix then placed in the anterior face of the tibia and adjusted 14 mm medially. Proximal tibial cut was made and to take about 2 mm of bone off the medial side. Tibia sized a size 71. Attention drawn the femur. The distal femur send with a sharp drill. Intramedullary canal was suction. A right 5 degree valgus cutting guide was placed. The distal femoral cutting block was pinned in place. This femoral cut was made to take an additional 3 mm of bone distal femur. The femur was then sized to a size 72.5. We did downsize this about half a size. The AP cutting block was pinned parallel to the epicondylar axis which was 3 degrees of external rotation. The anterior cut, anterior chamfer, posterior cut, posterior chamfer cuts were made. The box cutting guide was placed in the just slight lateral and the box cut was made. The knee was flexed. The remnants of the medial and lateral menisci were excised. The osteoarticular posterior aspect the femur. A trial femoral component was placed. The tibial tray was pinned Maxidex and rotation in the Aggarwal 10 point review discrete defect and proximal tibia for the tibial tray. The knee was then trialed and the 12 mm insert fit most appropriately. Attention was then drawn to the patella. The patella was cleaned of all soft tissues. Patella thickness measured 23 mm in thickness it was cut down to 14. Was sized to a size 31 patella. The lug holes were drilled for 31 patella. The lateral aspect removed. Patella button was placed. Knee was taken through range of motion patella tracked nicely with no thumbs test. Attention turned to place the permanent components. All trial components were removed. Bone plug was placed into this. Double batch of Palacos G cement was mixed. A Biomet Vanguard size 72.5 right posterior by femoral component, size 71 tibial tray, a 12 mm posterior Byce polyethylene insert, and a 31 x 8 all poly patella then cemented in place. The knee was brought out into full extension till cement hardened. Final symmetric exam performed. Pericapsular tissues were injected with total of 100 cc of orthopedic joint mass. The patient did receive 1 g tranexamic acid. The tourniquet was then let down for tourniquet time 62 minutes. Hemostasis to reduce electrocautery. The extensor mechanism then closed with combination 1 PDS suture and a 1 Vicryl suture in a [id number] fashion. The extensor mechanism checked and found to be intact. Subcutaneous tissue was then closed with 2 Dexon suture in a buried knot fashion skin was closed skin heydi. Leg was then cleaned and dried and a sterile dressing with Xeroform, 4 fourths, sterile ABD pad, sterile cast padding, Oren bandage were applied. The patient was then transferred to the recovery room in stable condition. The patient tolerated the procedure well and there were no complications. Naveen Cruz, my physician stonecutter assistant, was present for the entire procedure. His assistance was essential and required for appropriate patient positioning, prepping and draping, surgical exposure, performing the technical details of the operation, placement the implants, closure of the wound, and placement of the sterile bandage. I attest to the content of the Intraoperative Record and any orders documented therein. Any exceptions are noted below.
--- NOTE | 2023-07-20 14:52 | XRay Report ---
XR knee RT 1 or 2V routine HISTORY: 67 years-old Female Surgical Post Op right knee arthroplasty COMPARISON: 06/21/2023 TECHNIQUE: 2 views of the right knee FINDINGS: Total joint arthroplasty with patellar resurfacing. Anterior midline skin heydi with expected posto perative soft tissue swelling and deep tissue air. Arterial calcifications. IMPRESSION: Total joint arthroplasty with expected postoperative changes. ACT 112: Negative or not required by law. The above report was generated using voice recognition software. It may contain grammatical, syntax o r spelling errors. Electronically signed by: Jl Contreras M.D. 07/20/2023 2:51 PM
--- NOTE | 2023-07-20 14:58 | Anesthesiology Progress Note ---
Date of Service July 20, 2023 Anesthesia Post Procedure Vital Signs Vital Signs: Temp Pulse Resp BP Pulse Ox O2 Del Method 07/20/23 14:45 86 18 106/56 L 95 Room Air 07/20/23 14:35 89 16 107/59 L 95 Room Air 07/20/23 14:25 36.1 C L 90 16 104/58 L 97 Room Air 07/20/23 11:19 37 C 95 H 20 150/85 H 96 Room Air Transfer of Care Handoff Completed per policy Notes Mental Status: alert / awake / arousable Patient Amnestic to Procedure: Yes Nausea / Vomiting: adequately controlled Pain: adequately controlled Airway Patency, RR, SpO2: stable & adequate BP & HR: stable & adequate Hydration State: stable & adequate Neuraxial Anesthesia: was administered and sensory block is resolving Anesthetic Complications: no major complications apparent
[2023-07-20] MEDS: SODIUM CHLORIDE 0.9% 1,000 ML IV SCH (15:00)
[2023-07-20] MEDS ORDERED: METOCLOPRAMIDE HCL INJ 5 MG/ML 2 ML VIAL IV PRN (15:28)
[2023-07-20] MEDS ORDERED: bisacodyL 10 MG SUPP PR PRN (15:28)
[2023-07-20] MEDS ORDERED: NYSTATIN POWDER 15GM BTL EXT PRN (15:28)
[2023-07-20] MEDS ORDERED: NALOXONE HCL 0.4 MG/1 ML VIAL/CARP IV PRN (15:28)
[2023-07-20] MEDS ORDERED: MAGNESIUM HYDROXIDE SUSP 30 ML UDC PO PRN (15:28)
[2023-07-20] MEDS ORDERED: HYDROmorphone INJ 0.5 MG/0.5 ML SYR IV PRN (15:28)
[2023-07-20] MEDS ORDERED: ALUMINUM/MAGNESIUM SUSP 30 ML UDC PO PRN (15:28)
[2023-07-20] MEDS: Scopolamine CHECK PATCH PLACEMENT SCH (16:08)
[2023-07-20] MEDS: ASCORBIC ACID 500 MG TAB PO SCH (17:26)
[2023-07-20] MEDS: ceFAZolin 2000MG 2,000 MG/15 ML SYR IV SCH (20:25)
[2023-07-20] MEDS: TRANEXAMIC ACID / 0.7% NACL 1,000 MG/100 ML BAG IV SCH (20:25)
[2023-07-20] MEDS: ASPIRIN 81 MG ECTAB PO SCH (20:26)
[2023-07-20] MEDS: ATORVASTATIN 20 MG TAB PO SCH (20:27)
[2023-07-20] MEDS: FAMOTIDINE 40 MG TABLET PO SCH (20:27)
[2023-07-20] MEDS: SENNA 8.6 MG TAB PO SCH (20:27)
[2023-07-20] MEDS: DOCUSATE SODIUM 100 MG CAP PO SCH (20:29)
[2023-07-20] MEDS: LOSARTAN POTASSIUM 50 MG TAB PO SCH (20:31)
[2023-07-20] MEDS ORDERED: SENNA 8.6 MG TAB PO SCH (21:00)
[2023-07-20] MEDS: KETOROLAC TROMETHAMINE 15 MG/ML VIAL IV SCH (23:25)
[2023-07-21] MEDS: oxyCODONE HCL IR 5 MG TAB (IMMEDIATE RELEASE) PO PRN (01:35)
[2023-07-21 07:14] LABS: BUN Creatinine Ratio 16.8 (10-20); Calcium 8.5 mg/dl (8.6-10.3); Creatinine Clr Calc Pharmacy 64.2 ml/min; Est GFR (African American) 51.2 ml/min; Est GFR (Non-African American) 44.2 ml/min; Potassium 4.5 mmol/L (3.5-5.1)
[2023-07-21] MEDS: dexAMETHasone 10 MG in SYRINGE 0 ML IV SCH (08:18)
[2023-07-21] MEDS: MULTIVITAMIN TAB PO SCH (08:19)
[2023-07-21] MEDS: FUROSEMIDE 20 MG TAB PO SCH (08:19)
[2023-07-21] MEDS: amLODIPine BESYLATE 5 MG TAB PO SCH (08:19)
[2023-07-21] MEDS: CALCIUM 600MG + VIT D 400 IU TAB PO SCH (08:19)
[2023-07-21] MEDS ORDERED: NON-FORMULARY MEDICATION (Ascorbic Acid (Vitamin C) 100 mg tablet) PO SCH (09:00)
[2023-07-21] MEDS ORDERED: NON-FORMULARY MEDICATION (Potassium Gluconate 600 mg (99 mg) Tablet) PO SCH (09:00)
[2023-07-21] MEDS ORDERED: NON-FORMULARY MEDICATION (Multivitamin tablet) PO SCH (09:00)
--- NOTE | 2023-07-21 10:15 | Orthopedic Progress Note ---
Date of Service July 21, 2023 Assessment & Plan (1) Status post right knee replacement: Overall, she is doing quite well today with good pain control to the right knee. She has participated well with physical therapy working on ambulation and range of motion exercises. She is on aspirin for DVT prophylaxis. She can be discharged home later this morning pending formal physical therapy evaluation and recommendations. She will follow-up with Dr. Chan in 2 weeks for postoperative management. Nica Ac was seen and evaluated this morning resting comfortably in no apparent distress. She notes that her pain is well-controlled to the right knee. She just participated with physical therapy in which the therapist does state that she did quite well today with range of motion and ambulation exercises. She has been up and out of bed without any significant issues prior to physical therapy. She denies any new concerns today. Review of Systems All systems reviewed & are unremarkable except as noted in HPI & below. Physical Exam . On physical examination of the right knee: Dressings are clean, dry, intact. Her leg is out full extension. She has active plantarflexion dorsiflexion right ankle. +2 DP and PT pulse. Less than 2-second capillary refill. Normal sensation. Novastan intact. Results & Data Results & Data Laboratory Results . Diagnostic Findings . Postoperative x-rays of the right knee show prosthesis to be in anatomical alignment with no signs of fracture complication or loosening. PG Care Time/CCT Total # of Minutes Spent Total Time Spent with Patient: Total time spent is greater than 50% in coordination of care (as documented) at patient's floor/unit and/or counseling patient: Coding Level of Care Code 56966 Post Operative Follow-Up Diagnoses Status post right knee replacement Z96.651
[2023-07-21 10:17] LABS: Hematocrit (blood only) 35.3 % (37.0-47.0); Hemoglobin 11.8 g/dl (12.0-16.0); Mean Corpuscular Hemoglobin 30.7 pg (25.0-34.0); Mean Corpuscular Hgb Conc 33.4 g/dL (32.0-36.0); Mean Corpuscular Volume 91.9 fL (80.0-100.0); Platelet Count 181 K/uL (130-400); RDW Coefficient of Variation 12.3 % (11.5-14.5); RDW Standard Deviation 41.5 fL (36.4-46.3); Red Blood Count 3.84 M/uL (4.20-5.40); White Blood Count 14.39 K/ul (4.8-10.8)
--- NOTE | 2023-07-21 10:17 | Discharge Summary ---
Date of Service July 21, 2023 Principal Diagnosis Same as "Discharge Diagnosis" noted below under Discharge Instructions. Discharge Exam . On physical examination of the right knee: Dressings are clean, dry, intact. Her leg is out full extension. She has active plantarflexion dorsiflexion right ankle. +2 DP and PT pulse. Less than 2-second capillary refill. Normal sensation. Novastan intact. Discharge Data Procedures Performed Operation Date: 07/20/23 12:30 Actual Procedures p Right Total Knee Arthroplasty(Right) - Don Chan MD Ordered Studies 07/20/23 05:00 US - OR guided needle placemen Routine Hospital Course (1) Status post right knee replacement: On July 20, 2019 for Yashira arrived at [facility] underwent a right total knee arthroplasty performed by Dr. Chan with no complications. She had a spinal anesthetic. Postoperatively, she was started on aspirin for DVT prophylaxis and transferred to the general orthopedic floor in stable condition. Her hospital course was uneventful. On postoperative day #1, however vital signs are stable and her pain is well-controlled. She participated well with physical therapy working on ambulation and range of motion exercises. She was then discharged home to stable condition. She will follow-up with Dr. Chan in 2 weeks for postoperative management. PG Care Time/CCT Total # of Minutes Spent Total Time Spent with Patient: Total time spent is greater than 50% in coordination of care (as documented) at patient's floor/unit and/or counseling patient: Discharge Plan Discharge Items Patient Disposition: Home - Home Health Services Reason For Visit: RIGHT KNEE REPLACEMENT Discharge Diagnosis: Right Knee Replacement Activity: Per Instructions section Weightbearing: Full weightbearing Non-emergency contact: Surgeon Call non-emergency contact if: you have any medication questions Follow-up/Referrals: Gunner Menendez DO [Primary Care Provider] - Diet: Regular Addtl Attending Provider Instructions: ACTIVITY RECOMMENDATIONS: Physical Therapy: * You will go to physical therapy three times each week for four to six weeks after your surgery in order to regain your knee range of motion and to retrain your knee to work properly. * It is just as important to make sure you are getting your knee perfectly straight as it is to regain your knee bend. * Taking a pain pill an hour before therapy can help you have a more productive and comfortable therapy session. Home Exercise: * You were shown a series of exercises (heel props, heel slides, etc.) in the hospital. Do these exercises three to four times each day including the exercises you were shown in physical therapy. Walking: * Get up and walk several times each day. For the first four weeks, try not to stand or walk for more than one hour at a time. If you do stand or walk for more than one hour, you will not hurt anything, but your knee and leg will likely swell. * As you feel comfortable, you may change from the walker or crutches to a cane and then to independent walking. MEDICATIONS: New Medicine: * You will likely be taking one or more of these medications: 1. Oxycodone - A quick and shorter-acting pain medication. Take one to two tablets every six hours to lessen your pain. 2. Aspirin - Thins your blood to lessen the chance of forming a blood clot. * The most common side effects of pain medicine and iron are nausea and constipation. If nausea or constipation is too much of a problem or if you have any questions about your new medicines or doses, call [facility] at [phone]. We will try to help you manage these issues. "VERY IMPORTANT TO READ AND REVIEW" Pain: * The immediate post-operative period after knee replacement surgery is often quite painful. * You are given a prescription for pain medicine. You should take it, as directed, when you need it, especially before physical therapy and before going to bed. Pain that interferes with sleep is very common and can last several months. * You will likely need pain medicine for the first four to six weeks. It will not stop all of the pain. The pain will lessen and as you feel better, you may change to milder pain medicine such as Tylenol. * The most common side effects of pain medicine are nausea and constipation, so don't take more than you need. SPECIAL CARE INSTRUCTIONS: TEDs/Elastic Stockings: * The white elastic stockings help limit swelling and prevent blood clots from forming in your legs. The more you wear them, the more they work. * Wear them for six weeks after knee replacement surgery and four weeks after partial knee replacement. Incision Site Care: * Remove dressing postoperative day 2 and then shower. Keep direct shower pressure off the incision site. * After showering, cover heydi with dry gauze and change daily or more frequently if the dressing is getting saturated with drainage. * Use the TERI stockings to hold dressing in place. DO NOT apply tape on the skin. * May completely stop using bandage if wound is dry and no drainage * Heydi are removed between 2 and 3 weeks post-op. If your follow-up appointment is made before 2 weeks, please have your appointment re- scheduled. It is too early to remove the heydi. Prevention of Infection: * Take antibiotics one hour before any dental cleaning, dental work, urological procedure, gastrointestinal procedure or any invasive surgery in order to prevent your new joint from getting infected. * You may get the antibiotics from the doctor performing the procedure or you may call our office at [phone] before and we will call in a prescription to the pharmacy of your choice. Things to Watch For: * Drainage from the incision site that occurs more than one week after your surgery. * Severely increased knee/leg pain or swelling. * Increased redness at the incision site. * Fever above 102 degrees Fahrenheit. * Unusual chest pain or shortness of breath. * Unusual pain or burning with urination. Call [facility] at [phone] with any of the above problems or if you have any questions about your medicines or recovery. FOLLOW UP VISIT: Make an appointment to see your doctor for approximately two weeks after surgery for a progress check and staple removal by calling the office at [phone]. Pending Studies at Discharge: No Stand-Alone Forms: My [facility] [employer], Smoking Cessation Medications and DC Order Prescriptions: Continued famotidine 40 mg tablet 40 mg PO QPM Qty: 90 3RF losartan 50 mg tablet 50 mg PO BID Qty: 200 3RF atorvastatin [Lipitor] 20 mg tablet 20 mg PO QPM Qty: 90 4RF furosemide 20 mg tablet 20 mg PO QAM Qty: 90 3RF (DME) Wheeled Walker Misc See Rx Instructions .MEDSUPPLY Qty: 1 0RF Rx Instructions: As directed oxycodone 5 mg tablet 5 - 10 mg PO Q6 PRN (Reason: pain) Qty: 40 0RF Rx Instructions: Take as needed for pain ondansetron 4 mg tablet,disintegrating 4 mg PO Q8 PRN (Reason: nausea) Qty: 20 1RF Rx Instructions: Take as needed for nausea ketorolac 10 mg tablet 10 mg PO Q6 PRN (Reason: pain) 5 Days Qty: 20 0RF Rx Instructions: Take 4 times per day with food for 5 days to lessen pain and swelling. sennosides [Senokot] 8.6 mg tablet 8.6 mg PO BID 14 Days Qty: 28 0RF Rx Instructions: Take two times a day to prevent/treat constipation acetaminophen [Tylenol Extra Strength] 500 mg tablet 1,000 mg PO TID 30 Days Qty: 180 0RF Rx Instructions: Take 3 times per day to lessen pain. aspirin [Karlos Low Dose Aspirin] 81 mg tablet,delayed release (DR/EC) 81 mg PO BID 45 Days Qty: 90 0RF Rx Instructions: Take to prevent blood clots. cefadroxil 500 mg capsule 500 mg PO BID 7 Days Qty: 14 0RF Rx Instructions: Take 1 cap twice a day to prevent infection multivitamin tablet 1 tab PO QAM ascorbic acid (vitamin C) 100 mg tablet 500 mg PO QAM aspirin [Karlos Low Dose Aspirin] 81 mg tablet,delayed release (DR/EC) 81 mg PO QAM nystatin 100,000 unit/gram powder 1 applic TOP BID PRN (Reason: rash) Qty: 30 0RF potassium gluconate 600 mg (99 mg) Tablet 600 mg PO QAM calcium carbonate-vitamin D3 600 mg-5 mcg (200 unit) Tablet 1 tab PO QAM amlodipine 5 mg tablet 5 mg PO QAM Discontinued meloxicam 7.5 mg tablet 7.5 mg PO BID Qty: 200 3RF Admission Data Admit Date/Time: 07/20/23 14:21 Attending Provider: Don Chan Admit Provider: Don Chan Primary Care Provider: Gunner Menendez Other Providers: [facility]
== END 2023-07-21 11:03 | disposition home health service (06) ==
LOC: 3E 10:53 → ASU 10:53